=== PATIENT | female | born 1995 | race Caucasian/White ===

== ENCOUNTER 2022-12-27 01:03 | Emergency (ER) | payer BC, SELFPAY ==
[2022-12-27 01:08] VITALS: PULSE 71; RESP 17; TEMP 35.7; O2SAT 98; BMI 18.3
[2022-12-27 02:49] LABS: HCG, Serum Qual Negative (Negative)
[2022-12-27] MEDS: haloperidol inj 5 mg/mL INJ 1 mL IVP (02:50)
[2022-12-27] MEDS: ondansetron 2 mg/ML SDV 2 mL 4 MG IVP (02:50)
[2022-12-27 02:51] LABS: Basophils # 0.1 10^3/uL (0.0-0.1); Basophils % 0.3 %; Eosinophils # 0.1 10^3/uL (0.0-0.8); Eosinophils % 0.3 %; Hematocrit 42.6 % (37.0-47.0); Hemoglobin 14.2 g/dL (11.5-15.3); Lymphocytes # 2.2 10^3/uL (0.8-4.8); Lymphocytes % 6.3 %; Mean Corpuscular HGB Conc 33.3 g/dL (30.0-36.0); Mean Corpuscular Hemoglobin 30.7 pg (28.0-34.0); Mean Platelet Volume 10.1 fL (7.4-10.4); Monocytes % 5.8 %; Neutrophils # 29.57 10^3/uL (1.8-7.7); Nucleated Red Blood Cells % 0 %; Platelet Count 385 10^3/cmm (130-400); Red Blood Count 4.63 10^6/uL (4.1-5.3); Red Cell Distribution Width 12.7 % (12.1-15.1)
[2022-12-27] MEDS: sodium chloride 0.9% 1,000 ML 999 ML IV ×2 (02:51→03:31)
[2022-12-27 02:52] LABS: Alanine Aminotransferase 19 U/L (0-33); Albumin Level 4.6 g/dL (3.5-5.2); Alkaline Phosphatase 44 U/L (35-105); Anion Gap 22.4 (5-19); Aspartate Amino Transferase 24 U/L (0-32); Blood Urea Nitrogen 18 mg/dL (6-20); Calcium 10.7 mg/dL (8.5-10.5); Carbon Dioxide 20 mmol/L (22-29); Chloride 98 mmol/L (98-107); Globulin 2.6 g/dL (1.3-4.6); Glucose 181 mg/dL (65-115); Lipase 19 U/L (13-60); Magnesium 1.3 mg/dL (1.7-2.3); Osmolality Calculated 290 mOsm/kg (285-295); Potassium 3.4 mmol/L (3.5-5.1); Sodium 137 mmol/L (136-145); Total Bilirubin 0.8 mg/dL (0.15-1.2); Total Protein 7.2 g/dL (6.6-8.7)
[2022-12-27 02:59] LABS: White Blood Count 34.4 10^3/uL (4.0-10.0)
[2022-12-27 04:13] VITALS: PULSE 66; RESP 14; O2SAT 99
[2022-12-27 04:25] LABS: Amphetamines Screen Urine Negative (Negative); Barbiturates Screen Urine Negative (Negative); Benzodiazepines Screen Urine Negative (Negative); Cocaine Screen Urine Negative (Negative); Opiate Screen Urine Negative (Negative); PCP Screen Urine Negative (Negative); THC Screen Urine Positive (Negative)
[2022-12-27 04:32] LABS: Urine Appearance Clear (CLEAR); Urine Color Yellow (Yellow); pH Urine 5 (5-7)
[2022-12-27 04:33] LABS: Add Urine Microscopic? YES; Bilirubin Urine Neg (Negative); Blood Urine 2+ (Negative); Glucose Urine UA Norm (Normal); Ketones Urine 2+ (Negative); Leukocyte Esterase Urine Negative (Negative); Nitrate Urine Negative (Negative); Protein Urine Neg (Negative); Urobilinogen Urine Neg (Negative)
[2022-12-27 04:38] LABS: Bacteria Urine 1+ /hpf; Mucus Urine 1+ /hpf; RBC Urine 0-4 /hpf (0-2); Squamous Epithelial Cell Urine 0-4 /hpf (0-5); WBC Urine 0-4 /hpf (0-5)
[2022-12-27 04:39] LABS: Add Urine Culture? Yes
[2022-12-27 05:00] VITALS: BP 128/76; PULSE 87; RESP 16; O2SAT 99
[2022-12-27] MEDS: chlorPROMazine 25 mg Tablet PO (05:01)
--- NOTE | 2022-12-27 05:03 | W.ED.NAVMDI ---
HPI - Nausea/Vomiting/Diarrhea General: Chief complaint: Nausea/Vomiting/Diarrhea Stated complaint: n/v Time Seen by Provider: 12/27/22 02:16 Source: patient and family History of Present Illness: 27-year-old female with a history of vomiting in the past. She presents with repetitive vomiting and retching for several hours today. She complains of generalized belly pain. No fever. Mild diarrhea. MD elicited complaint: nausea, vomiting, diarrhea and abdominal pain Pertinent past history: cyclical vomiting Onset (ago): hour(s) Description of vomiting: food contents and watery Associated nausea: Yes Associated abdominal pain: Yes Location of pain: Diffuse Radiation: diffuse Pain consistency: intermittent Severity: moderate Quality: cramping and aching Relieving factors: none Associated symtoms: Reports anxiety, decreased urine output and nausea; Denies altered mental status, chest pain, cough, dysuria, fevers/chills, headache(s) or short of breath Review of Systems Const: Denies: fever(s) ENMT: Reports: throat pain Card: Denies: chest pain Resp: Denies: dyspnea, productive cough or non-productive cough GI: Reports: abdominal pain, nausea, vomiting and diarrhea : Denies: dysuria Neuro: Denies: headache(s) Psych: Reports: anxiety Physical Exam Const: EXAM LIMITATIONS: no altered mental status GENERAL APPEARANCE: in distress and ill appearing (mildly) NUTRITIONAL APPEARANCE: thin HENMT: COMMON NORMALS: normocephalic and atraumatic HEAD & SCALP: normocephalic and atraumatic FACE & SINUS: normal facial exam Eye: COMMON NORMALS: Equal, round and reactive pupils present and EOMs intact bilaterally PUPIL: Yes Equal, round and reactive pupils present Neck/C-Spine: GENERAL: Yes trachea midline Chest: CHEST: Yes Symmetrical chest wall rise Resp: COMMON NORMALS: normal respiratory effort, No use of accessory muscles and clear to auscultation bilaterally AUSCULTATION: clear to auscultation bilaterally Cardio: COMMON NORMALS: regular rate and regular rhythm RATE: regular rate RHYTHM: regular rhythm GI: COMMON NORMALS: Soft to palpation PALPATION: Yes Soft to palpation, Yes Tenderness to palpation present (GI) (diffuse) and No Guarding due to palpation present (GI) : COMMON NORMALS: Yes no CVA tenderness BLADDER/KIDNEY EXAM: Yes no CVA tenderness Back/Pelvis: COMMON NORMALS: no CVA tenderness Extremity: COMMON NORMALS: no pedal edema Neuro: MAKAYLA COMA SCALE: document GCS findings Makayla coma scale eye opening: Spontaneous Makayla coma scale verbal response: Orientated [place] coma scale motor response: [place]bey commands [place] coma scale total score: 15 Psych: COMMON NORMALS: cooperative Course Vital Signs: Vital signs: Vital Signs Temperature 96.2 F L 12/27/22 01:08 Pulse Rate 71 12/27/22 01:08 Respiratory Rate 17 12/27/22 01:08 Pulse Oximetry 98 12/27/22 01:08 Oxygen Delivery Me thod Nasal Cannula 12/27/22 01:08 MDM - Nausea/Vomiting/Diarrhea Medical Decision Making Patient's vital signs were stable. Her white blood cell count is 34.4, with mild left shift. However, her CRP is only 3. Her belly is mildly diffusely tender. Her creatinine is 1.1. Glucose 181. Bicarbonate 20. She is given a 2 L bolus here. She is given IV Haldol and Zofran for nausea, with total of vomiting. This is likely cyclic vomiting syndrome. Her urinalysis is negative for UTI. Urine drug screen is positive for marijuana which is a likely culprit. She is given 1 Thorazine here. She is to go home on scheduled Thorazine for at least the next 24 hours, up to 48 hours. To return if worsening. Lab Data 12/27/22 02:03 12/27/22 02:03 Laboratory Results WBC 34.4 10^3/uL (4.0-10.0) H* 12/27/22 02:03 RBC 4.63 10^6/uL (4.1-5.3) 12/27/22 02:03 Hgb 14.2 g/dL (11.5-15.3) 12/27/22 02:03 Hct 42.6 % (37.0-47.0) 12/27/22 02:03 MCV 92.0 fl (81-99) 12/27/22 02:03 MCH 30.7 pg (28.0-34.0) 12/27/22 02:03 MCHC 33.3 g/dL (30.0-36.0) 12/27/22 02:03 RDW 12.7 % (12.1-15.1) 12/27/22 02:03 Plt Count 385 10^3/cmm (130-400) 12/27/22 02:03 MPV 10.1 fL (7.4-10.4) 12/27/22 02:03 Neut % (Auto) 86.0 % 12/27/22 02:03 Lymph % (Auto) 6.3 % 12/27/22 02:03 [place] % (Auto) 5.8 % 12/27/22 02:03 Eos % (Auto) 0.3 % 12/27/22 02:03 Baso % (Auto) 0.3 % 12/27/22 02:03 Neut # (Auto) 29.57 10^3/uL (1.8-7.7) H 12/27/22 02:03 Lymph # (Auto) 2.2 10^3/uL (0.8-4.8) 12/27/22 02:03 [place] # (Auto) 2.0 10^3/uL (0.2-0.9) H 12/27/22 02:03 Eos # (Auto) 0.1 10^3/uL (0.0-0.8) 12/27/22 02:03 Baso # (Auto) 0.1 10^3/uL (0.0-0.1) 12/27/22 02:03 Nucleated RBC % (auto) 0 % 12/27/22 02:03 Nucleated RBCs # 0.0 /100WBC 12/27/22 02:03 Sodium 137 mmol/L (136-145) 12/27/22 02:03 Potassium 3.4 mmol/L (3.5-5.1) L 12/27/22 02:03 Chloride 98 mmol/L (98-107) 12/27/22 02:03 Carbon Dioxide 20 mmol/L (22-29) L 12/27/22 02:03 Anion Gap 22.4 (5-19) H 12/27/22 02:03 BUN 18 mg/dL (6-20) 12/27/22 02:03 Creatinine 1.1 mg/dL (0.5-0.9) H 12/27/22 02:03 GFR Calculation 60.0 mL/min (90-130) L 12/27/22 02:03 Glucose 181 mg/dL (65-115) H 12/27/22 02:03 Calculated Osmolality 290 mOsm/kg (285-295) 12/27/22 02:03 Calcium 10.7 mg/dL (8.5-10.5) H 12/27/22 02:03 Magnesium 1.3 mg/dL (1.7-2.3) L 12/27/22 02:03 Total Bilirubin 0.8 mg/dL (0.15-1.2) 12/27/22 02:03 AST 24 U/L (0-32) 12/27/22 02:03 ALT 19 U/L (0-33) 12/27/22 02:03 Alkaline Phosphatase 44 U/L (35-105) 12/27/22 02:03 C-Reactive Protein 3.0 mg/L (0.0-4.9) 12/27/22 02:03 Total Protein 7.2 g/dL (6.6-8.7) 12/27/22 02:03 Albumin 4.6 g/dL (3.5-5.2) 12/27/22 02:03 Globulin 2.6 g/dL (1.3-4.6) 12/27/22 02:03 Lipase 19 U/L (13-60) 12/27/22 02:03 HCG, Qual Negative (Negative) 12/27/22 02:03 Urine Color Yellow (Yellow) 12/27/22 04:05 Urine Appearance Clear (CLEAR) 12/27/22 04:05 Urine pH 5 (5-7) 12/27/22 04:05 Ur Specific [place] 1.010 (1.005-1.030) 12/27/22 04:05 Urine Protein Neg (Negative) 12/27/22 04:05 Urine Glucose (UA) Norm (Normal) 12/27/22 04:05 Urine Ketones 2+ (Negative) H 12/27/22 04:05 Urine Blood 2+ (Negative) H 12/27/22 04:05 Urine Nitrate Negative (Negative) 12/27/22 04:05 Urine Bilirubin Neg (Negative) 12/27/22 04:05 Urine Urobilinogen Neg mg/dL (Negative) 12/27/22 04:05 Ur Leukocyte Esterase Negative (Negative) 12/27/22 04:05 Urine RBC 0-4 /hpf (0-2) H 12/27/22 04:05 Urine WBC 0-4 /hpf (0-5) H 12/27/22 04:05 Ur Squamous Epith Cells 0-4 /hpf (0-5) H 12/27/22 04:05 Amorphous Sediment Not Reportable 12/27/22 04:05 Urine Bacteria 1+ /hpf (NONE) H 12/27/22 04:05 Hyaline Casts 5-10 /lpf H 12/27/22 04:05 Urine Mucus 1+ /hpf 12/27/22 04:05 Urine Yeast Trace /hpf 12/27/22 04:05 Urine Opiates Screen Negative ng/mL (Negative) 12/27/22 04:05 Ur Barbiturates Screen Negative ng/mL (Negative) 12/27/22 04:05 Ur Phencyclidine Scrn Negative ng/mL (Negative) 12/27/22 04:05 Ur Amphetamines Screen Negative ng/mL (Negative) 12/27/22 04:05 U Benzodiazepines Scrn Negative ng/mL (Negative) 12/27/22 04:05 Urine Cocaine Screen Negative ng/mL (Negative) 12/27/22 04:05 U Marijuana (THC) Screen Positive ng/mL (Negative) H 12/27/22 04:05 Discharge Plan Discharge Patient Disposition: Home Clinical Impression: Cyclical vomiting with nausea Condition: Stable Prescriptions: New chlorpromazine 25 mg tablet 25 mg PO TID Qty: 7 0RF Discharge Orders: Discharge ED (Routine); Ordered 12/27/22 Ordered By: Stephon Wade Discharge Diet: Clear Liquid Discharge Activity: Increase activity as tolerated Patient Instructions: Cyclic Vomiting Syndrome (ED) Activity Restrictions/Additional Instructions: Take the medication prescribed scheduled until gone, or until you have not vomited in over 24 hours. Return for fever greater than 100, worsening symptoms despite treatment. Avoid marijuana or cannabis use, as it can cause symptoms or make them worse. Coding Level of Care Code ED [employer] for Dale Tirado
== END 2022-12-27 05:09 | disposition home or self-care (01) ==
PROVIDERS: Emergency Provider Emergency Medicine
DX: R11.15 Cyclical vomiting syndrome unrelated to migraine (principal)
CPT/HCPCS: 80053; 80306; 81001; 83690; 83735; 84703; 85025; 86140; 87077; 87086; 87186; 96361; 96374; 96375; 99284; J1630; J2405; J7030; Q0161